=== PATIENT | female | born 1960 | race Caucasian/White ===

== ENCOUNTER 2016-06-08 10:27 | Emergency (ER) | payer OTHER ==
[~2016-06-08] VITALS: Ht 170.2 cm; Wt 88.6 kg
[2016-06-08 10:28] VITALS: BP 145/94; PULSE 81; RESP 18; O2SAT 98
[2016-06-08 11:52] LABS: BASOPHILS % (AUTO) 0.8 % (0-3); EOSINOPHILS % (AUTO) 1.8 % (0-5); MONOCYTES % (AUTO) 11.5 % (4-12); Mean Corpuscular Hemoglobin 29.4 pg (27.0-35.0); Mean Corpuscular Volume 89.6 fL (81-100); NEUTROPHILS % (AUTO) 58.6 % (40-74); Platelet Count 244 bil/L (150-400)
[2016-06-08 11:58] VITALS: BP 140/84; PULSE 78; RESP 21; O2SAT 100
[2016-06-08 12:29] LABS: Magnesium 2.3 mg/dL (1.6-2.6)
[2016-06-08 12:47] LABS: TROPONIN T < 0.010 ug/L (0.0-0.011)
--- NOTE | 2016-06-08 13:09 | DRSVH ---
PROCEDURE: X-RAY CHEST ONE VIEW, PORTABLE ([id number]) INDICATIONS: CHEST PAIN TECHNIQUE: One view of the chest was acquired. COMPARISON: None. FINDINGS: Surgical changes and devices: None. Lungs and pleura: No pleural effusions or pneumothorax. Lungs are clear. Mediastinum: Mediastinal contours appear normal. Heart size is normal. Bones and chest wall: No suspicious bony lesions. Overlying soft tissues appear unremarkable. IMPRESSION: No acute pulmonary process. Dictated by: Ivett Kirkpatrick M.D. on 06/08/2016 at 13:06 Approved by: Ivett Kirkpatrick M.D. on 06/08/2016 at 13:07
--- NOTE | 2016-06-08 13:10 | ED.REPORT ---
HPI-Chest Pain 40 and Over Date of Service Jun 08, 2016 ED Provider: George Alonso MD 55yoF with PMH remarkable for HTN and hypothyroidism presents with 1 day of chest pain described as left sided over her heart which is described as sharp in nature and gradually improving since the onset from 10/18 initially to 06/18 now. The patient states that it is worse with deep inspiration and palpation of the area. She denies dyspnea, nausea, worsening numbness or tingling in her hands or feet or worsening swelling in her hands or feet. She states that she has never had anything like this before. She says that last sunday 06/04 she saw a chiropractor which adjusted her chest and back. Nursing Notes Stated Complaint: CHEST PAIN/SHORTNESS OF BREATH Chief Complaint: Chest Pain Nursing Notes Reviewed: Yes Allergies: Coded Allergies: iodine (Verified Allergy, Unknown, 06/08/16) neomycin (Verified Allergy, Unknown, 06/08/16) General Time Seen by MD: 11:30 Chief Complaint Chest pain Hx Obtained From: Patient Arrived By: Walk-in Sudden in Onset?: Yes Onset Occurred: 17 - 20 hours ago Context of Onset: Other (no insighting event) Symptom Duration: Since onset Location: : Chest left Quality: Sharp Severity: Current: Pain level 3 out of 10 Severity: Maximum: Pain level 7 out of 10 Exacerbated by: Deep breath, Palpation of chest Relieved by: Remaining still, Rest Recent Healthcare: No recent hospitalization, Recent doctor visit Risk Factors )( CAD Risk Stratification Risk factors reviewed )( TAD Risk Stratification Risk factors reviewed )( PE Risk Stratification Risk factors reviewed Well's Criteria for PE Well's PE Score: 0-2 pts (low risk 3.6%) Past Medical History Past Medical History hypothyroidism HTN Smoking History Never Smoker Social History Alcohol Use: "Social" Drug Use: Denies drug use Other Social History: From out of town Occupation former RN now [employer] Ambulatory Status Independent Review of Systems Basic Review of Systems Eyes: Vision NL, No discharge ENT: Hearing NL, No pain, No nasal congestion, No pharyngeal pain : No dysuria, No frequency Hematologic: No bleeding, No bruising Endocrine: No cold intolerance, No heat intolerance, No weight gain, No weight loss Allergy / Immune: No allergy Constitutional: Denies: Chills, Fever Respiratory: Reports: Pleuritic pain, Denies: Dyspnea on exertion, Hemoptysis Cardiovascular: Reports: Chest pain, Denies: Dyspnea on exertion, Edema GI: Denies: Abdominal pain, Constipation, Diarrhea, Melena, Vomiting Musculoskeletal: Denies: Extremity swelling, Neck pain Skin: Denies Bruising, Denies Diaphoresis, Denies Rash, Denies Swelling, Denies Unexplained bruises Neurologic: Denies: Change LOC, Dizziness, Headache, Lightheaded Psychiatric: Denies: Confusion Complete sys rev & neg: except as marked. Physical Exam Initial Vital Signs Vital Signs (First) Date Time Temp Pulse Resp B/P Pulse Ox O2 Delivery O2 Flow Rate FiO2 06/08/16 10:28 36.3 81 18 145/94 98 06/08/16 11:58 Room Air Initial VS: Reviewed Head / Eyes: Atraumatic, Normocephalic, PERRL ENT: Mucous membranes moist, Conjunctiva normal, No scleral icterus Neck: Supple, Non-tender, Full range of motion Back: No CVA tenderness Lymphatic: No lymphadenopathy Extremities: Vascular intact, Neuro intact, No swelling, No tenderness Skin: Warm, Dry, No cyanosis Neurologic: Alert, Oriented, Nonfocal Psychiatric: Mood/affect normal, Behavior normal, Normal thought content General/Constitutional: Awake, Alert, No acute distress, Well appearing Respiratory / Chest: Breath sounds NL, Breath sounds = bilat, No respiratory distress, No rales, No rhonchi, No wheezing, No stridor, No chest tenderness Chest Wall / Ribs: Positive: Rib tender nondeformed L Rib 4 on left appears to be painful to palpation at anterior and portior portions Cardiovascular: Heart rate NL, Regular rhythm, Heart sounds NL, No murmurs, Peripheral circulation NL, Pulses = bilaterally, No gross BP differential Abdomen: Soft, Non-tender, McBurney's non-tender, No guarding, No rebound, BS normoactive, No distention, No hernia, No palpable mass Neck: Supple, Full range of motion, No swelling, Non-tender, No midline vertebral tend, No JVD Psychiatric: Affect NL Abnormal Thinking / Perception: Positive: Insight abnormal, Judgment abnormal Head / Eyes: Normocephalic, PERRL, No periorbital swelling Interpretation & Diagnostics Lab Results Interpretation Result Diagram: 06/08/16 1145 06/08/16 1145 Test 06/08/16 11:45 White Blood Count 7.2th/mm3 (3.8-10.1) Red Blood Count 4.83mil/mm3 (3.90-5.20) Hemoglobin 14.2g/dL (12.0-15.6) Hematocrit 43.3% (35.0-46.0) Mean Corpuscular Volume 89.6fL (81-100) Mean Corpuscular Hemoglobin 29.4pg (27.0-35.0) Mean Corpuscular Hemoglobin Concent 32.8% (32.0-37.0) Red Cell Distribution Width 14.0% (12.3-15.4) Platelet Count 244bil/L (150-400) Neutrophils (%) (Auto) 58.6% (40-74) Lymphocytes (%) (Auto) 27.2% (14-46) Monocytes (%) (Auto) 11.5% (4-12) Eosinophils (%) (Auto) 1.8% (0-5) Basophils (%) (Auto) 0.8% (0-3) Sodium Level 140mEq/L (134-144) Potassium Level 4.0mEq/L (3.5-5.2) Chloride Level 103mEq/L (97-108) Carbon Dioxide Level 28mmol/L (18-29) Blood Urea Nitrogen 12mg/dL (6-24) Creatinine 0.64mg/dL (0.57-1.00) Estimat Glomerular Filtration Rate 139mL/min (>59) Glucose Level 95mg/dL (60-99) Calcium Level 8.6mg/dL (8.5-10.1) Magnesium Level 2.3mg/dL (1.6-2.6) Total Bilirubin 0.3mg/dL (0.0-1.2) Aspartate Amino Transf (AST/SGOT) 19U/L (0-50) Alanine Aminotransferase (ALT/SGPT) 16U/L (0-32) Alkaline Phosphatase 73U/L (25-150) Troponin T < 0.010ug/L (0.0-0.011) Total Protein 7.5g/dL (6.4-8.4) Albumin 4.3g/dL (3.4-5.0) Thyroid Stimulating Hormone (TSH) 1.320uIU/mL (0.450-4.500) Hold Venegas Top Tube Received (Received) ECG Interpretation ECG Interpretation: Normal sinus rhythm LVH with increased voltage in precordial leads and left axis deviation Interpreted by: ED physician Re-Eval/Medical Decision Med Decision/Clinical Course 55yoF with chest pain for pain day worse with inspiration and palpation of the area. The patient denies dyspnea or leg swelling. Wells score is low risk for PE. On physical exam the 4 rib on the left is painful to palpation. CXR negative for pneumonia. EKG and trop x1 negative for NE. Patient will be discharged with diagnosis of rib dysfunction and asked to follow up with PCP. Counseled Regarding: Diagnosis, Lab results, Need for follow-up, When/why to return to ED Discharge & Departure Primary Impression: Rib pain on left side Additional Impression: Rib cage region somatic dysfunction Ruled Out: Pulmonary embolism, Myocardial infarct, Aortic aneurysm and dissection Disposition: Home Discharge Condition All VS Reviewed: Yes Condition: Stable Patient Instructions: Chest Pain (ED) Additional Instructions: During you visit to [facility] Emergency Department we obtained blood work for infectious markers, hemoglobin levels, and electrolytes. We obtained xray imaging of your chest which appear negative for serious life threatening conditions. All your lab values were within normal limits and your imaging showed no acute processes or abnormalities. Your vital signs were stable and safe for discharge. It appears your chest pain is caused by a rib dysfunction, which should heal on its own. You may try heating pads and over the counter pain medication taken as directed on the bottle. Do not hesitate to call emergency services or your primary care physician if you experience any of the following. - High unrelenting fevers. - Uncontrolled vomiting. - Severe high or low blood pressure - dizziness or loss of consciousness. - severe worsening Chest pain or severe shortness of breath. Follow up with your primary care physician in 1-2 weeks time following your emergency department visit for medication checks and general well-being. Referrals: OTHER,PHYSICIAN (PCP) (Family) Attending Statement Seen and examined with Dr Blackmon on 06/08. Agree with above. Leonardo Gresham DO Jun 08, 2016 13:09 George Alonso MD Jun 08, 2016 18:21
== END 2016-06-08 13:16 | disposition home or self-care (01) ==
LOC: SED 10:27
DX: R07.81 Pleurodynia (principal); M99.08 Segmental and somatic dysfunction of rib cage; I10 Essential (primary) hypertension; E03.9 Hypothyroidism, unspecified; Z88.1 Allergy status to other antibiotic agents; Z91.041 Radiographic dye allergy status